=== PATIENT | male | born 1950 | race Hispanic/Latino ===

== ENCOUNTER 2021-10-15 07:32 | Observation (INO) | payer OTHER ==
[~2021-10-15] VITALS: Ht 167.6 cm; Wt 91.6 kg
[~2021-10-15 07:32] MED LIST: CALCIUM600 MG PO; HYDROCODON-ACE1 EA15 PO; METFORMIN HCL500 MG PO; MOBIC7.5 MG PO; ZESTRIL10 MG PO
[2021-10-15] MEDS ORDERED: ROPIVACAINE 246.25 MG, EPINEPHRINE HCL 1:1000 1ML 0.5 MG, CLONIDINE HCL 0.08 MG, KETORO... INJ ONE ×5 (08:00)
[2021-10-15] MEDS ORDERED: CELECOXIB 200 MG CAP ONE (08:06)
[2021-10-15] MEDS ORDERED: GABAPENTIN 300 MG CAP ONE (08:07)
[2021-10-15] MEDS ORDERED: SODIUM CHLORIDE 0.9% 50ML 100 ML ONE (08:07)
[2021-10-15] MEDS ORDERED: DEXAMETHASONE SOD PHOS 10 MG/1 ML VIAL ONE (08:07)
[2021-10-15 08:22] LABS: BASOPHILS # (AUTO) 0.1 (0.0-0.1); BASOPHILS % 1.2 % (0.0-1.0); EOSINOPHILS # (AUTO) 0.3 (0.0-0.4); EOSINOPHILS % 4.4 % (0.0-6.0); HEMATOCRIT 45.1 % (38.2-49.6); HEMOGLOBIN 14.9 g/dL (14.0-18.0); LYMPHOCYTES # (AUTO) 1.8 (1.0-3.2); LYMPHOCYTES % 29.6 % (18.0-39.1); MEAN CORPUSCULAR HEMOGLOBIN 33.2 pg (28-32); MEAN CORPUSCULAR VOLUME 100.4 fL (81-99); MONOCYTES # (AUTO) 0.5 (0.2-0.8); MONOCYTES % 8.4 % (4.4-11.3); NEUTROPHILS # (AUTO) 3.3 (2.1-6.9); NEUTROPHILS % 56.1 % (38.7-80.0); PLATELET COUNT 101 x10e3/uL (140-360); RED BLOOD COUNT 4.49 x10e6/uL (4.3-5.7); RED CELL DISTRIBUTION WIDTH 12.6 % (11.7-14.4)
[2021-10-15 08:42] LABS: ANION GAP 13.1 mmol/L (8-16); CALCIUM 9.5 mg/dL (8.4-10.2); CREATININE, SERUM 0.72 mg/dL (0.72-1.25); POTASSIUM 4.1 mmol/L (3.5-5.1)
[2021-10-15] MEDS ORDERED: Vancomycin IV 1,000 MG ONE (08:46)
[2021-10-15] MEDS ORDERED: TRANEXAMIC ACID 1,000 MG/10 ML ML ONE (08:46)
[2021-10-15] MEDS ORDERED: SODIUM CHLORIDE 0.9% 500ML 500 ML ONE (08:46)
[2021-10-15] MEDS ORDERED: ZOLPIDEM TARTRATE 5 MG TAB PO PRN (11:00)
[2021-10-15] MEDS ORDERED: KETOROLAC TROMETHAMINE 30 MG/ML VIAL IV PRN (11:00)
[2021-10-15] MEDS ORDERED: ACETAMINOPHEN 650 MG SUPP PR PRN (11:00)
[2021-10-15] MEDS ORDERED: HYDROCODONE/APAP 5MG-325MG TAB PO PRN (11:00)
[2021-10-15] MEDS ORDERED: DIPHENHYDRAMINE HCL INJ 50 MG/ML VIAL IV PRN (11:00)
[2021-10-15] MEDS ORDERED: FENTANYL CITRATE/PF 100MCG/2 ML INJ ONE ×2 (11:23→13:26)
[2021-10-15] MEDS ORDERED: HYDROMORPHONE 1MG/1ML INJ ONE ×2 (11:31→11:42)
[2021-10-15] MEDS: HYDROCODONE/APAP 7.5MG-325MG 1 EA TAB PO PRN ×2 (11:56→17:05)
[2021-10-15 12:21] VITALS: BP 156/99
[2021-10-15] MEDS ORDERED: LIDOCAINE HCL 2% LOCAL INJ 5 ML SDV VIAL INJ ONE (12:42)
[2021-10-15] MEDS ORDERED: SEVOFLURANE INHAL SOLN 250 ML PEN BTL ONE (12:42)
[2021-10-15] MEDS ORDERED: PROPOFOL IV EMULSION 10 MG/ML 20 ML VIAL ONE (12:42)
[2021-10-15] MEDS ORDERED: ONDANSETRON HCL INJ 2MG/ML 2ML 2 MG/ML VIAL ONE (12:42)
[2021-10-15] MEDS ORDERED: POVIDONE IODINE 0.05% 0.05 % ML PO ONE (12:42)
[2021-10-15 12:53] VITALS: BP 146/80
[2021-10-15] MEDS ORDERED: LIDOCAINE 2%/ EPINEPHRINE 20ML MDV ONE (12:55)
[2021-10-15] MEDS ORDERED: ROPIVACAINE 0.5% 5 MG/ML 30 ML SDV ONE (12:55)
[2021-10-15] MEDS ORDERED: SODIUM CHLORIDE 0.9% 1000ML 1,000 ML IV SCH (13:00)
[2021-10-15] MEDS ORDERED: MIDAZOLAM HCL 2 MG/2 ML VIAL ONE (13:26)
[2021-10-15 15:28] VITALS: BP 144/88
[2021-10-15] MEDS ORDERED: TRAZODONE HCL50 MG PO (16:01)
[2021-10-15] MEDS ORDERED: INSULIN LISPRO 100 UNIT/1 ML 3ML VIAL SQ SCH (16:30)
[2021-10-15] MEDS ORDERED: METFORMIN HCL 500 MG TAB PO SCH (16:30)
[2021-10-15] MEDS ORDERED: DEXTROSE 50% SYRINGE 50 ML IV PRN (16:30)
[2021-10-15] MEDS ORDERED: ASPIRIN 325 MG TAB PO SCH (17:00)
[2021-10-15] MEDS ORDERED: CELECOXIB 200 MG CAP PO SCH (17:00)
[2021-10-15] MEDS ORDERED: Cefazolin 1 GM in SODIUM CHLORIDE 0.9% 50ML 50 ML IV SCH (17:30)
[2021-10-16] MEDS ORDERED: ACETAMINOPHEN 1000 MG/100 ML IV PRN (11:00)
== END 2021-10-15 18:45 | disposition home health service (06) ==
LOC: OR 07:32 → PACU V 10:51 → MED/SURG 12:46
PROVIDERS: ADMIT Specialist; ATTEND Specialist
DX: M17.12 Unilateral primary osteoarthritis, left knee (principal); E11.9 Type 2 diabetes mellitus without complications; I10 Essential (primary) hypertension; E78.5 Hyperlipidemia, unspecified; D69.6 Thrombocytopenia, unspecified; Z79.84 Long term (current) use of oral hypoglycemic drugs; Z83.3 Family history of diabetes mellitus; Z82.49 Family history of ischemic heart disease and other diseases of the circulatory system; M24.562 Contracture, left knee
CPT/HCPCS: 36415; 71046; 80048; 82948; 85025; 86850; 86900; 86920; 94799; C1713; C1776; G0378; J0171; J0690; J1100; J1170; J1885; J2001; J2250; J2405; J2795; J3010; J3370; J7030; J7040; U0002